=== PATIENT | female | born 1990 | race Caucasian/White ===

== ENCOUNTER 2018-02-01 17:27 | Emergency (ER) | payer OTHER ==
--- NOTE | 2018-02-01 17:32 | PDOC ---
Rapid Medical Evaluation Time Seen by Provider: 02/01/18 17:32 Medical Evaluation: 02/01/18 17:32 I have performed a brief in-person evaluation of this patient. The patient presents with a chief complaint of: dizziness since this am "when bending down", denies N/V, has nexplanon, denies recent travel Pertinent physical exam findings: well appearing I have ordered the following: urine preg The patient will proceed to the ED for further evaluation. Discharge Disposition - Diagnosis Dizziness - Referrals - Patient Instructions - Post Discharge Activity
[2018-02-01 17:37] VITALS: BP 107/77; PULSE 76; TEMP 98.4; BMI 37.0
[2018-02-01] MEDS ORDERED: MECLIZINE HCL 25 MG TABLET (FP) PO ONE (18:14)
[2018-02-01] MEDS ORDERED: SODIUM CHLORIDE 1,000 ML IV STA (18:31)
--- NOTE | 2018-02-01 18:31 | PDOC ---
History of Present Illness - General Chief Complaint: Lightheaded Stated Complaint: HEAD/NECK PROBLEM Time Seen by Provider: 02/01/18 17:32 History Source: Patient Exam Limitations: No Limitations - History of Present Illness Initial Comments: 02/01/18 18:23 A 27-year-old woman without significant past medical history presents emergency Department with neck heaviness and dizziness since awakening this morning. Patient states she's been having brief episodes of dizziness which worsen with change of position. Patient states the dizziness is associated with motion describes as a "twisting" of her visual field and when she closes her eyes and opens them, she expresses a room spinning dizziness. She denies headaches, fevers, chills, blurry vision, nausea, vomiting, chest pain, shortness of breath. Past History - Past Medical History Allergies/Adverse Reactions: Allergies Allergy/AdvReac Type Severity Reaction Status Date / Time No Known Allergies Allergy Verified 02/01/18 17:33 COPD: No DVT: No Dementia: No - Immunization History Immunization Up to Date: Yes - Suicide/Smoking/Psychosocial Hx Smoking History: Current every day smoker Number of Cigarettes Smoked Daily: 2 Information on smoking cessation initiated: No Hx Alcohol Use: No Drug/Substance Use Hx: No Substance Use Type: None Review of Systems - Review of Systems Able to Perform ROS?: Yes Is the patient limited Italian proficient: No Constitutional: No: Symptoms Reported HEENTM: Yes: See HPI Respiratory: No: Symptoms reported Cardiac (ROS): No: Symptoms Reported ABD/GI: No: Symptoms Reported : No: Symptoms Reported Musculoskeletal: No: Symptoms Reported Integumentary: No: Symptoms Reported Neurological: Yes: See HPI Endocrine: No: Symptoms Reported *Physical Exam - Vital Signs Last Vital Signs Temp Pulse Resp BP Pulse Ox 98.4 F 76 17 107/77 99 02/01/18 17:33 02/01/18 17:33 02/01/18 17:33 02/01/18 17:33 02/01/18 17:33 - Physical Exam General Appearance: Yes: Appropriately Dressed. No: Apparent Distress HEENT: positive: Normal ENT Inspection Neck: positive: Trachea midline, Supple Respiratory/Chest: positive: Lungs Clear, Normal Breath Sounds. negative: Respiratory Distress, Accessory Muscle Use Cardiovascular: positive: Regular Rhythm, Regular Rate. negative: Murmur Gastrointestinal/Abdominal: positive: Normal Bowel Sounds, Soft. negative: Tender Musculoskeletal: positive: Normal Inspection. negative: CVA Tenderness Extremity: positive: Normal Capillary Refill, Normal Inspection, Normal Range of Motion Integumentary: positive: Normal Color, Dry, Warm Neurologic: positive: cable respooler II-XII NML intact, Fully Oriented, Alert, Normal Mood/ Affect, Normal Response, Motor Strength 5/5, Finger to Nose, Other (Ataxia noted during tandem walk. 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 Given noted ataxia with tandem walking and neck heaviness I will chest for the patient to the main ER for further evaluation to rule out intracranial pathology including vertebral artery dissection. Sign out given to GIRMA Bran. *DC/Admit/Observation/Transfer Diagnosis at time of Disposition: Dizziness - Referrals Referrals: Nasrin Santana [Primary Care Provider] - - Patient Instructions - Post Discharge Activity
[2018-02-01] MEDS ORDERED: MECLIZINE HCL 25 MG TABLET (FP) ONE (18:40)
[2018-02-01 18:47] LABS: BASO % 1.1 % (0-2.0); EOS % 2.6 % (0-4.5); HEMATOCRIT 40.1 % (32.4-45.2); HEMOGLOBIN 13.7 GM/dL (10.7-15.3); LYMPH % 42.6 % (8-40); MCH 31.6 pg (25.7-33.7); MEAN CELL VOLUME 92.8 fl (80-96); MEAN PLT VOLUME 8.8 fl (7.5-11.1); MONO % 6.1 % (3.8-10.2); NEUT % 47.6 % (42.8-82.8); PLATELET COUNT 311 K/MM3 (134-434); RBC 4.32 M/mm3 (3.60-5.2); WHITE BLOOD COUNT 6.7 K/mm3 (4.0-10.0)
[2018-02-01 18:56] LABS: URINE APPEARANCE CLEAR; URINE BILIRUBIN NEGATIVE (<2.0 mg/dL); URINE BLOOD 2+ (NEGATIVE); URINE COLOR LTYELLOW; URINE GLUCOSE (UA) NEGATIVE (NEGATIVE); URINE KETONE NEGATIVE (NEGATIVE); URINE LEUK ESTERASE NEGATIVE (NEGATIVE); URINE NITRITE NEGATIVE (NEGATIVE); URINE PROTEIN NEGATIVE (NEGATIVE); URINE UROBILINOGEN NEGATIVE mg/dL (0.2-1.0)
[2018-02-01] MEDS ORDERED: METOCLOPRAMIDE HCL INJECTION 10 MG/2 ML VIAL IVPB ONE (18:58)
--- NOTE | 2018-02-01 18:58 | PDOC ---
History of Present Illness - General Chief Complaint: Lightheaded Stated Complaint: HEAD/NECK PROBLEM Time Seen by Provider: 02/01/18 17:32 History Source: Patient - History of Present Illness Timing/Duration: other (this am) Associated Symptoms: denies: chest pain, fever/chills, nausea/vomiting, shortness of breath, weakness Past History - Past Medical History Allergies/Adverse Reactions: Allergies Allergy/AdvReac Type Severity Reaction Status Date / Time No Known Allergies Allergy Verified 02/01/18 17:33 COPD: No DVT: No Dementia: No - Immunization History Immunization Up to Date: Yes - Suicide/Smoking/Psychosocial Hx Smoking History: Current every day smoker Number of Cigarettes Smoked Daily: 2 Information on smoking cessation initiated: No Hx Alcohol Use: No Drug/Substance Use Hx: No Substance Use Type: None Review of Systems - Review of Systems Is the patient limited Burundian proficient: No HEENTM: No: Blurred Vision ABD/GI: No: Nausea, Vomiting Neurological: Yes: Dizziness. No: Headache, Numbness, Tingling, Weakness *Physical Exam - Vital Signs Last Vital Signs Temp Pulse Resp BP Pulse Ox 98.4 F 76 17 107/77 99 02/01/18 17:33 02/01/18 17:33 02/01/18 17:33 02/01/18 17:33 02/01/18 17:33 - Physical Exam General Appearance: Yes: Appropriately Dressed. No: Apparent Distress HEENT: positive: Normal Voice Neck: positive: Supple. negative: Tender Respiratory/Chest: negative: Respiratory Distress Integumentary: positive: Dry, Warm Neurologic: positive: jailer II-XII NML intact, Fully Oriented, Alert, Normal Mood/ Affect, Motor Strength 5/5 (no nystagmus, no drift, Vicki intact) ED Treatment Course - LABORATORY CBC & Chemistry Diagram: 02/01/18 18:20 02/01/18 18:20 - ADDITIONAL ORDERS Additional order review: Laboratory Results 02/01/18 17:45 Urine HCG, Qual Negative Medical Decision Making - Medical Decision Making 02/01/18 18:46 27-year-old female, no significant history, on control, here with dizziness. Patient reports both lightheadedness and sensation of the room spinning that occurred this a.m. and has been intermittent, worse when getting up from a supine position. Complaining of "discomfort" to posterior aspect of head/neck. No visual changes, nausea, vomiting, focal weakness. Denies any recent URI symptoms. No new medications. No history of similar episode. No recent trauma. No chest pain or shortness of breath See exam Vertigo Possibly complex migraine given occipital/neck pain, no recent URI, no focal deficits, unlikely dissection -meclizine -reglan -IVF -CTA head/neck as ordered by ADALBERTO Miramontes -reassess 02/01/18 19:00 02/01/18 19:16 Pt signed out to ADALBERTO Bernard a/w labs/CT and reassessment *DC/Admit/Observation/Transfer Diagnosis at time of Disposition: Dizziness - Referrals Referrals: Nasrin Santana [Primary Care Provider] - - Patient Instructions - Post Discharge Activity
[2018-02-01 19:26] LABS: EPI CELLS RARE /HPF (FEW); URINE MUCUS RARE
--- NOTE | 2018-02-01 19:39 | PDOC ---
*Physical Exam - Vital Signs Last Vital Signs Temp Pulse Resp BP Pulse Ox 98.4 F 76 17 107/77 99 02/01/18 17:33 02/01/18 17:33 02/01/18 17:33 02/01/18 17:33 02/01/18 17:33 ED Treatment Course - LABORATORY CBC & Chemistry Diagram: 02/01/18 18:20 02/01/18 18:20 - ADDITIONAL ORDERS Additional order review: Laboratory Results 02/01/18 02/01/18 19:20 17:45 Urine Color Ltyellow Urine Appearance Clear Urine pH 6.0 Ur Specific [place] 1.011 Urine Protein Negative Urine Glucose (UA) Negative Urine Ketones Negative Urine Blood 2+ H Urine Nitrite Negative Urine Bilirubin Negative Urine Urobilinogen Negative Ur Leukocyte Esterase Negative Urine WBC (Auto) 1 Urine RBC (Auto) 7 Ur Epithelial Cells Rare Urine Mucus Rare Urine HCG, Qual Negative 02/01/18 18:20 RBC 4.32 MCV 92.8 MCHC 34.0 RDW 14.0 MPV 8.8 Neutrophils % 47.6 Lymphocytes % 42.6 H Monocytes % 6.1 Eosinophils % 2.6 Basophils % 1.1 - Medications Given in the ED: ED Medications Discontinued Medications Generic Name Dose Route Start Last Admin Trade Name Freq PRN Reason Stop Dose Admin Sodium Chloride 1,000 mls @ 1,000 mls/hr 02/01/18 18:31 02/01/18 19:06 Normal Saline - IV 02/01/18 19:30 1,000 mls/hr ASDIR STA Administration Meclizine HCl 25 mg 02/01/18 18:14 02/01/18 19:06 Antivert - PO 02/01/18 18:15 25 mg ONCE ONE Administration Medical Decision Making - Medical Decision Making 02/01/18 21:49 CTA head and neck: negative. Patient 's symptoms improved after IVF and reglan. will d/c home with outpatient neurology and ENT referral. *DC/Admit/Observation/Transfer Diagnosis at time of Disposition: Dizziness Headache Qualifiers: Headache type: tension-type Headache chronicity pattern: acute headache Intractability: not intractable Qualified Code(s): G44.209 - Tension-type headache, unspecified, not intractable - Referrals Referrals: Nasrin Santana [Primary Care Provider] - Call tomorrow Grant Horne MD [Staff Physician] - Call tomorrow Jacky,Weston Crook MD [Staff Physician] - Call tomorrow - Patient Instructions Printed Discharge Instructions: Vertigo Additional Instructions: drink plenty of fluids. follow up with neurology and ENT as soon as possible. return to the ER if symptoms worsen. - Post Discharge Activity Forms/Work/School Notes: Back to Work
[2018-02-01 19:55] LABS: ALK PHOS 87 U/L (45-117); ANION GAP 12 (8-16); BILIRUBIN,TOTAL 0.3 mg/dL (0.2-1.0); BLOOD UREA NITROGEN 14 mg/dL (7-18); CALCIUM 9.1 mg/dL (8.5-10.1); CHLORIDE 106 mmol/L (98-107); CO2 25 mmol/L (21-32); CREATININE 0.7 mg/dL (0.55-1.02); GLUCOSE,RANDOM 98 mg/dL (74-106); POTASSIUM 3.8 mmol/L (3.5-5.1); SGOT/AST 18 U/L (15-37); SGPT/ALT 25 U/L (12-78); SODIUM 143 mmol/L (136-145); TOT PROT 7.7 g/dl (6.4-8.2)
[2018-02-01] MEDS ORDERED: METOCLOPRAMIDE HCL INJECTION 10 MG/2 ML VIAL ONE (20:42)
[2018-02-01] MEDS ORDERED: KETOROLAC TROMETHAMINE 30 MG/1 ML VIAL IVPUSH ONE (21:50)
[2018-02-01] MEDS ORDERED: KETOROLAC TROMETHAMINE 30 MG/1 ML VIAL ONE (21:51)
== END 2018-02-01 22:33 | disposition home or self-care (01) ==
LOC: JERFT 17:27 → JER 17:27
PROC: 3E0337Z Introduction of Electrolytic and Water Balance Substance into Peripheral Vein, Percutaneous Approach (ICD-10-PCS; principal; 2018-02-01)
PROC: 3E033GC Introduction of Other Therapeutic Substance into Peripheral Vein, Percutaneous Approach (ICD-10-PCS; 2018-02-01)
PROC: 3E033GC Introduction of Other Therapeutic Substance into Peripheral Vein, Percutaneous Approach (ICD-10-PCS; 2018-02-01)
PROC: 3E033GC Introduction of Other Therapeutic Substance into Peripheral Vein, Percutaneous Approach (ICD-10-PCS; 2018-02-01)
DX: G44.209 Tension-type headache, unspecified, not intractable (principal)
CPT/HCPCS: 36415; 70496-TC; 70498-TC; 80053; 81003; 81015; 84703; 85025; 99281-25; J7030

== ENCOUNTER 2020-04-28 09:56 | Emergency (ER) | payer OTHER ==
[2020-04-28 10:03] VITALS: BP 112/76; PULSE 98; TEMP 98; BMI 35.2
--- NOTE | 2020-04-28 10:05 | PDOC ---
Rapid Medical Evaluation Medical Evaluation: Allergies Allergy/AdvReac Type Severity Reaction Status Date / Time No Known Allergies Allergy Verified 02/01/18 17:33 04/28/20 10:02 29 yo denies pmhx c/o constant mid sternal cp since "the middle of the night" pain worsens upon inspiration. denies sob, cough, n/v/f/d/c, abd pain, back pa in, sick contacts, recent travel. VSS speaking full sentences A/P: Chest pain ecg
[2020-04-28 10:38] LABS: BASO % 1.2 % (0-2.0); EOS % 2.2 % (0-4.5); HEMATOCRIT 42.2 % (32.4-45.2); LYMPH % 39.1 % (8-40); MCH 31.1 pg (25.7-33.7); MCHC 33.3 g/dl (32.0-36.0); MEAN CELL VOLUME 93.5 fl (80-96); MEAN PLT VOLUME 8.4 fl (7.5-11.1); MONO % 11.3 % (3.8-10.2); NEUT % 46.2 % (42.8-82.8); PLATELET COUNT 288 K/MM3 (134-434); RBC 4.51 M/mm3 (3.60-5.2); RDW 14.2 % (11.6-15.6)
--- NOTE | 2020-04-28 10:57 | PDOC ---
History of Present Illness - General Chief Complaint: Chest Pain Stated Complaint: CHEST PAIN Time Seen by Provider: 04/28/20 10:39 History Source: Patient Exam Limitations: Clinical Condition - History of Present Illness Initial Comments: 04/28/20 11:08 Patient with no significant past medical history present with complaint of midsternal chest pain upon wake this morning which is prominent with deep breathing. Patient report pain is localized to mid sternum. Denies shortness of breath, palpitation, numbness or tingling sensation, arm weakness, nausea, vomiting, dizziness, difficulty breathing, headache, dizziness. Denies any other symptoms. Patient reported pain as aching midsternal pain with deep breathing. Denies immediate family history of cardiomyopathy. Patient not on OCP. Is this a multiple visit Asthma Patient?: No Timing/Duration: 1-3 hours Past History - Medical History Allergies/Adverse Reactions: Allergies Allergy/AdvReac Type Severity Reaction Status Date / Time No Known Allergies Allergy Verified 04/28/20 10:03 Home Medications: Ambulatory Orders Ibuprofen 400 mg PO Q8H PRN #12 tablet 04/28/20 COPD: No DVT: No Dementia: No - Immunization History Immunization Up to Date: Yes - Psycho-Social/Smoking History Smoking History: Current every day smoker Have you smoked in the past 12 months: Yes Number of Cigarettes Smoked Daily: 2 Information on smoking cessation initiated: Yes - Substance Abuse Hx (Audit-C & DAST Scrn) How often the patient has a drink containing alcohol: Never Score: In Men: 4 or > Positive; In Women: 3 or > Positive: 0 Screen Result (Pos requires Nsg. Audit-10AR): Negative In the last yr the pt used illegal drug/Rx for NonMed reason: No Score: Yes response is considered Positive: 0 Screen Result (Positive result requires Nsg. DAST-10): Negative Review of Systems - Review of Systems Able to Perform ROS?: Yes Is the patient limited Ukrainian proficient: No Constitutional: No: Chills, Fever, Malaise HEENTM: No: Symptoms Reported, See HPI, Eye Pain, Blurred Vision, Tearing, Recent change in vision, Double Vision, Cataracts, Ear Pain, Ocular Prothesis, Ear Discharge, Nose Pain, Nose Congestion, Tinnitus, Nose Bleeding, Hearing Loss, Throat Pain, Throat Swelling, Mouth Pain, Dental Problems, Difficulty Swallowing, Mouth Swelling, Other Respiratory: No: Symptoms reported, See HPI, Cough, Orthopnea, Shortness of Breath, SOB with Exertion, SOB at Rest, Stridor, Wheezing, Productive cough, Hemoptysis, Other Cardiac (ROS): Yes: Symptoms Reported, See HPI, Chest Pain (Midsternal pain). No: Edema, Irregular Heart Rate, Lightheadedness, Palpitations, Syncope, Chest Tightness, Other ABD/GI: No: Symptoms Reported, See HPI, Nausea, Vomiting, Abdominal cramping Musculoskeletal: No: Symptoms Reported Psychiatric: No: Anxiety, Depression, Mood Swings, Change in Appetite All Other Systems: Reviewed and Negative *Physical Exam - Vital Signs Last Vital Signs Temp Pulse Resp BP Pulse Ox 98.0 F 98 H 18 112/76 98 04/28/20 10:00 04/28/20 10:00 04/28/20 10:00 04/28/20 10:00 04/28/20 10:00 - Physical Exam 04/28/20 11:11 GENERAL: Well developed, well nourished. Awake and alert. No acute distress. HEENT: Normocephalic, atraumatic. PERRLA, EOMI. No conjunctival pallor. Sclera are non-icteric. Moist mucous membranes. Oropharynx is clear. NECK: Supple. Full ROM. CARDIOVASCULAR: Mild reproducible midsternal chest tenderness. Regular rate and rhythm. No murmurs, rubs, or gallops. Distal pulses are 2+ and symmetric. PULMONARY: No evidence of respiratory distress. Lungs clear to auscultation bilaterally. No wheezing, rales or rhonchi. ABDOMINAL: Soft. Non-tender. Non-distended. No rebound or guarding. No organomegaly. Normoactive bowel sounds. MUSCULOSKELETAL Normal range of motion at all joints. SKIN: Warm and dry. Normal capillary refill. No rashes. No cyanosis. NEUROLOGICAL: Alert, awake, appropriate. Gait is normal without ataxia. PSYCHIATRIC: Cooperative. Good eye contact. Appropriate mood General Appearance: Yes: Nourished, Appropriately Dressed. No: Apparent Distress ED Treatment Course - LABORATORY CBC & Chemistry Diagram: 04/28/20 10:00 04/28/20 10:00 - ADDITIONAL ORDERS Additional order review: 04/28/20 10:00 RBC 4.51 MCV 93.5 MCHC 33.3 RDW 14.2 MPV 8.4 Neutrophils % 46.2 Lymphocytes % 39.1 Monocytes % 11.3 H D Eosinophils % 2.2 Basophils % 1.2 - RADIOLOGY Radiology Studies Ordered: Category Date Time Status CHEST PA & LAT [RAD] Stat Radiology 04/28/20 10:47 Ordered Medical Decision Making - Medical Decision Making 04/28/20 11:10 Patient with no significant past medical history present with complaint of midsternal chest pain upon wake this morning which is prominent with deep breathing. Patient report pain is localized to mid sternum. Denies shortness of breath, palpitation, numbness or tingling sensation, arm weakness, nausea, vomiting, dizziness, difficulty breathing, headache, dizziness. Denies any other symptoms. Patient reported pain as aching midsternal pain with deep breathing. Denies immediate family history of cardiomyopathy. Patient not on OCP. Exam significant for mild localized increased chest tenderness otherwise unremarkable exam. Patient in no acute distress. Normal cardio and lung exam. No abdominal tenderness. Symptoms likely costochondritis versus less likely cardiogenic pain. Patient PERC negative. CBC, chemistry and cardiac labs ordered. EKG shows normal sinus rhythm. Chest x-ray done shows no acute abnormality. Treat based on lab result 04/28/20 11:22 Checks x-ray shows no acute abnormality. CBC chemistry lab unremarkable and cardiac profile negative. Patient still asymptomatic now. Patient symptoms likely costochondritis. Motrin 600 mg p.o. ordered for pain patient stable for discharge with strict follow-up instruction Discharge - Discharge Information Problems reviewed: Yes Clinical Impression/Diagnosis: Costochondral chest pain Condition: Improved Disposition: HOME - Admission No - Additional Discharge Information Prescriptions: Ibuprofen 400 mg PO Q8H PRN #12 tablet PRN Reason: pain - Follow up/Referral Referrals: Mic Oliva MD [Staff Physician] - - Patient Discharge Instructions Patient Printed Discharge Instructions: DI for Costochondritis Additional Instructions: Your blood work is normal. Your chest x-ray is normal as well and your EKG is normal. Your pain is likely from muscle pain. You can take Tylenol Motrin as needed for pain. Come back to the emergency room with worsening chest pain with shortness of breath, vomiting or any worsening symptoms otherwise follow-up referred primary teacher as needed if symptoms persist - Post Discharge Activity
[2020-04-28 11:12] LABS: ALBUMIN 3.7 g/dl (3.4-5.0); ALK PHOS 91 U/L (45-117); ANION GAP 7 MMOL/L (8-16); BILIRUBIN,TOTAL 0.5 mg/dL (0.2-1); BLOOD UREA NITROGEN 10.6 mg/dL (7-18); CALCIUM 8.8 mg/dL (8.5-10.1); CHLORIDE 106 mmol/L (98-107); CO2 26 mmol/L (21-32); CREATININE 0.8 mg/dL (0.55-1.3); POTASSIUM 3.9 mmol/L (3.5-5.1); SGOT/AST 25 U/L (15-37); SGPT/ALT 31 U/L (13-61); SODIUM 139 mmol/L (136-145); TOT PROT 7.3 g/dl (6.4-8.2)
[2020-04-28 11:14] LABS: GLUCOSE,RANDOM 97 mg/dL (74-106)
[2020-04-28] MEDS ORDERED: IBUPROFEN 400 MG TABLET (FP) PO ONE ×2 (11:24→11:34)
--- NOTE | 2020-04-29 12:06 | EKG ---
Test Reason : Blood Pressure : / mmHG Vent. Rate : 083 BPM Atrial Rate : 083 BPM P-R Int : 128 ms QRS Dur : 084 ms QT Int : 368 ms P-R-T Axes : 036 042 031 degrees QTc Int : 432 ms NORMAL SINUS RHYTHM NORMAL ECG NO PREVIOUS ECGS AVAILABLE Confirmed by Vijay Montemayor MD ([id number]) on 04/29/2020 12:06:01 PM Referred By: Confirmed By:Vijay Montemayor MD
== END 2020-04-28 11:37 | disposition home or self-care (01) ==
LOC: JER 09:56
DX: M94.0 Chondrocostal junction syndrome [Tietze] (principal)
CPT/HCPCS: 36415; 71046-TC-FY; 80053; 82550; 84484; 84703; 85025; 93005; 93010; 99285-25

== ENCOUNTER 2022-01-09 02:55 | Emergency (ER) | payer OTHER ==
[2022-01-09 03:43] VITALS: BP 123/86; PULSE 82; TEMP 98.2; BMI 37.0
[2022-01-09] MEDS ORDERED: BENZOCAINE/MENTH/CETYLPYRD CL 1 EACH LOZENGE MM PRN (05:11)
[2022-01-09] MEDS ORDERED: BENZOCAINE/MENTH/CETYLPYRD CL 1 EACH LOZENGE MM ONE (05:14)
[2022-01-09] MEDS ORDERED: KETOROLAC TROMETHAMINE 15 MG/ML VIAL IM ONE (05:19)
[2022-01-09] MEDS ORDERED: DEXAMETHASONE 4 MG TABLET (FP) PO ONE (05:20)
[2022-01-09] MEDS ORDERED: KETOROLAC TROMETHAMINE 15 MG/ML VIAL ONE (05:22)
[2022-01-09] MEDS ORDERED: DEXAMETHASONE SOD PHOSPHATE 10 MG/1 ML VIAL ONE (05:23)
== END 2022-01-09 06:30 | disposition home or self-care (01) ==
LOC: JER 02:55
PROC: 3E023GC Introduction of Other Therapeutic Substance into Muscle, Percutaneous Approach (ICD-10-PCS; principal; 2022-01-09)
DX: J02.9 Acute pharyngitis, unspecified (principal)
CPT/HCPCS: 87070; 99284-25

== ENCOUNTER 2024-06-04 17:24 | Emergency (ER) | payer OTHER ==
[2024-06-04 17:39] VITALS: BP 105/79; PULSE 70; RESP 18; TEMP 99.2; BMI 35.2
[2024-06-04] MEDS ORDERED: KETOROLAC TROMETHAMINE 30 MG/1 ML VIAL ONE (18:43)
[2024-06-04] MEDS: KETOROLAC TROMETHAMINE 30 MG/1 ML VIAL IM ONE (18:48)
== END 2024-06-04 18:50 | disposition home or self-care (01) ==
LOC: JER 17:24 → JERFT 17:24
PROC: 3E0133Z Introduction of Anti-inflammatory into Subcutaneous Tissue, Percutaneous Approach (ICD-10-PCS; principal; 2024-06-04)
DX: J02.9 Acute pharyngitis, unspecified (principal); R05.9 Cough, unspecified
CPT/HCPCS: 84703; 99284-25

== ENCOUNTER 2024-06-07 21:44 | Emergency (ER) | payer OTHER ==
[2024-06-07 21:51] VITALS: RESP 18; BMI 32.8
[2024-06-07] MEDS ORDERED: KETOROLAC TROMETHAMINE 15 MG/ML VIAL ONE (22:14)
[2024-06-07] MEDS: KETOROLAC TROMETHAMINE 15 MG/ML VIAL IVPUSH ONE (22:21)
[2024-06-07] MEDS: LIDOCAINE VISCOUS 2% ORAL/TOP 15 ML UNIT-DOSE CUP MM ONE (22:21)
[2024-06-07] MEDS ORDERED: LIDOCAINE VISCOUS 2% ORAL/TOP 15 ML UNIT-DOSE CUP ONE (22:24)
[2024-06-07 22:33] LABS: BASO % 0.7 % (0-2.0); EOS % 0.9 % (0-4.5); HEMATOCRIT 37.8 % (32.4-45.2); HEMOGLOBIN 12.8 GM/dL (10.7-15.3); LYMPH % 21.8 % (8-40); MCH 30.8 pg (25.7-33.7); MCHC 33.9 g/dl (32.0-36.0); MEAN PLT VOLUME 8.2 fl (7.5-11.1); MONO % 8.2 % (3.8-10.2); NEUT % 68.4 % (42.8-82.8); PLATELET COUNT 321 10^3/uL (134-434); RBC 4.16 M/mm3 (3.60-5.2); RDW 14.3 % (11.6-15.6)
[2024-06-07 22:55] LABS: POTASSIUM 4.4 mmol/L (3.5-5.1)
[2024-06-07 22:57] LABS: CALCIUM 8.9 mg/dL (8.5-10.1)
[2024-06-07 22:58] LABS: ALBUMIN 3.6 g/dl (3.4-5.0); BLOOD UREA NITROGEN 10.1 mg/dL (7-18)
[2024-06-07 23:01] LABS: CREATININE 0.7 mg/dL (0.55-1.3)
[2024-06-07 23:02] LABS: BILIRUBIN,TOTAL 0.3 mg/dL (0.2-1)
[2024-06-07 23:03] LABS: TOT PROT 7.3 g/dl (6.4-8.2)
[2024-06-08 01:41] VITALS: BP 114/81; PULSE 84; TEMP 99
== END 2024-06-08 03:18 | disposition home or self-care (01) ==
LOC: JER 21:44 → JERFT 21:44 → JER 06-08 03:18
PROC: 3E0333Z Introduction of Anti-inflammatory into Peripheral Vein, Percutaneous Approach (ICD-10-PCS; principal; 2024-06-07)
DX: R07.0 Pain in throat (principal); R09.A2 Foreign body sensation, throat; R09.81 Nasal congestion; R11.10 Vomiting, unspecified; Z20.822 Contact with and (suspected) exposure to COVID-19
CPT/HCPCS: 0241U-QW; 36415; 70491-TC; 80053; 84703; 85025; 87651; 99285-25; Q9967